=== PATIENT | male | born 1960 | race Hispanic/Latino ===

== ENCOUNTER 2016-09-20 05:57 | Day surgery (SDC) | payer MEDICARE ==
[2016-09-20] MEDS ORDERED: ECOTRIN PO ONE (06:15)
[2016-09-20] MEDS ORDERED: NACL 0.9% 500 ML 500 ML IV SCH (07:00)
[2016-09-20] MEDS ORDERED: HEPARIN/NS 5000 UNIT/500ML(CATH LAB) 1,000 ML IR ONE (08:10)
[2016-09-20] MEDS: VERSED ONE ×2 (08:33→08:50)
[2016-09-20] MEDS: SUBLIMAZE ONE ×2 (08:33→08:50)
[2016-09-20] MEDS: HEPARIN 10,000 UNITS/10 ML ONE ×2 (08:34→08:51)
[2016-09-20] MEDS: XYLOCAINE 2% INFILTRATI ONE ×2 (08:34→08:51)
[2016-09-20] MEDS: CALAN ONE ×2 (08:35→08:51)
[2016-09-20] MEDS: NITROGLYCERIN SYRINGE 3 ML ONE ×2 (08:39→08:51)
--- NOTE | 2016-09-20 09:33 | Short Stay Summary ---
Short Stay Documentation Date of service: 09/20/16 - History H&P: obtained from office - Allergies and Medications Current Medications: Allergies No Known Allergies Allergy (Verified 09/20/16 06:14) Home Medications Medication Instructions Recorded Confirmed Last Taken Type Carvedilol [Coreg] 6.25 mg PO BID #60 tablet 02/16/15 09/20/16 09/20/16 05:00 Rx 6.25 Spironolactone [Aldactone] 25 mg PO QDAY #30 tablet 02/16/15 09/20/16 09/20/16 05:00 Rx 25mg Gabapentin [Neurontin] 300 mg PO Q8HR 09/20/16 09/20/16 09/13/16 05:00 History Glimepiride [Amaryl] 4 mg PO DAILY 09/20/16 09/20/16 09/20/16 05:00 History Lisinopril [Zestril TAB] 10 mg PO BID 09/20/16 09/20/16 09/20/16 05:00 History Metformin HCl [Glucophage] 1,000 mg PO BID 09/20/16 09/20/16 09/20/16 05:00 History Mv,Ca,Min/Iron Fum/FA/Lyco/Lut 1 tab PO DAILY 09/20/16 09/20/16 09/20/16 05:00 History [Complete Multi Tablet] 1 tab [place]-3 Fatty Acids [Fish Oil] 2 tab PO BID 09/20/16 09/20/16 09/20/16 05:00 History 2 tab Vit B Cmplx & C#11/Ca/Dha/Q10 2 tab PO BID 09/20/16 09/20/16 09/20/16 05:00 History [Brain Lqtmi-Oqx-Pl Q10 Tablet] Active Medications Sodium Chloride (Nacl 0.9% 500 Ml) 500 mls @ 50 mls/hr IV DIRECT CADEN Stop: 09/20/16 16:59 Last Admin: 09/20/16 07:04 Dose: 50 mls/hr - Brief post op/procedure progress note Date of procedure: 09/20/16 Pre-op diagnosis: chest pain Post-op diagnosis: same Procedure: see report Anesthesia: local Estimated blood loss: none Pathology: none - Disposition Condition at discharge: Good Disposition: DISCHARGED TO HOME OR SELFCARE - Discharge Diagnoses (1) Chest pain Status: Chronic Qualifiers: Chest pain type: other chest pain Qualified Code(s): R07.89 - Other chest pain; R07.8 - Other chest pain (2) Diabetes Status: Chronic Qualifiers: Diabetes mellitus type: type 1 Diabetes mellitus complication status: without complication Qualified Code(s): E10.9 - Type 1 diabetes mellitus without complications (3) Dyslipidemia Status: Chronic (4) Hypertension Status: Chronic Qualifiers: Hypertension type: essential hypertension Qualified Code(s): I10 - Essential (primary) hypertension (5) Non-compliance Status: Chronic (6) Non-ischemic cardiomyopathy Status: Resolved Short Stay Discharge Plan Activity: advance as tolerated Diet: low fat, low cholesterol, low salt, diabetic Wound: keep clean and dry Special Instructions: hold Metformin (for two days)
--- NOTE | 2016-09-20 10:24 | Cardiac Catherization Report ---
LEFT HEART CATHETERIZATION REASON FOR STUDY: Recurrent chest pain. HISTORY OF PRESENT ILLNESS: A 55-year-old gentleman with hypertension, diabetes, noncompliant, is uncontrolled, has known LV dysfunction in the past, has normalized, but has recurrent chest pain with mildly abnormal stress test, is here for a left heart catheterization with also history of hypertension and hyperlipidemia. Left heart catheterization performed via the right radial artery. Normal Glenn's test, sterile technique, local anesthesia, 5-Czech radial sheath inserted. FINDINGS: Left system engaged with JL3.5 catheter. Left main is a large caliber vessel that is patent, bifurcates into large LAD that is patent with mild luminal irregularities from proximally to distally. Diagonal 1 is a medium caliber vessel, proximal has a 10-20% lesion. The rest of the diagonal is patent. Circumflex and AV groove is a small vessel that is patent with mild to moderate luminal irregularities. Ramus is also another small caliber vessel that is patent with mild to moderate luminal irregularities. RCA engaged with JR4, is moderate to severe tortuosity vessel that is patent with mild to moderate luminal irregularities. PDA and PLV are small caliber vessels that are patent with mild to moderate luminal irregularities. LV gram done in SHELL and YANEZ view shows normal LV function, EF 60%, LVEDP of 20 mmHg. LV is , aortic is 127/87, there is a 10 mm arjg-qb-osoo gradient suggestive of borderline to mild aortic stenosis. 5-Czech catheters were taken over a guidewire, 5-Czech radial sheath was discontinued. Radial dressing applied. No hematoma. No bleeding. SUMMARY: 1. Patent coronaries with mild luminal irregularities in the LAD, diagonal, ramus, circumflex and RCA and PDA. This is all prior from his diabetes that is controlled. 2. Mild borderline aortic stenosis with 10 mm pgxh-nf-rmml gradient. 3. Aggressive risk factor modification, better diabetes control. Stressed this to the patient in great detail. JOB# [id number] CAMILO/WILBERT
[2016-09-20 10:43] VITALS: BP 124/82
== END 2016-09-20 11:00 | disposition home or self-care (01) ==
LOC: OPU 05:57
PROVIDERS: ATTEND Internal Medicine
DX: R07.9 Chest pain, unspecified (principal); E11.42 Type 2 diabetes mellitus with diabetic polyneuropathy; E78.5 Hyperlipidemia, unspecified; I10 Essential (primary) hypertension; Z83.3 Family history of diabetes mellitus; Z82.3 Family history of stroke; Z82.49 Family history of ischemic heart disease and other diseases of the circulatory system
CPT/HCPCS: 36415; 82962; 85730; 93005; 93010; 93458; C1894; J1644; J2250; J3010; J7040; Q9967